=== PATIENT | female | born 1990 | race Caucasian/White ===

== ENCOUNTER 2023-12-01 20:48 | Outpatient (REF) | payer OTHER, SELFPAY ==
[2023-12-04 14:09] LABS: Age Gdln ACOG Testing Note (.); HPV Aptima Negative (Negative); IGP, Aptima HPV, rfx 16/18,45 Note (.)
== END 2023-12-01 20:49 | disposition home or self-care (01) ==
LOC: LAB 20:48
PROVIDERS: PCP Family Medicine; Visit Provider Physician Assistant
DX: Z01.419 Encounter for gynecological examination (general) (routine) without abnormal findings (principal)
CPT/HCPCS: 87624; G0145

== ENCOUNTER 2025-02-02 10:07 | Outpatient (OUT) | payer OTHER, SELFPAY ==
--- OUTSIDE RECORDS SUMMARY | 2025-02-02 10:18 | XMS_ITS | CCD ---
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 Name Role Phone PHYSICIAN, DEFAULT Admitting Unavailable PHYSICIAN, DEFAULT Attending Unavailable Sherry Morton Unavailable SELENE, DR SHERRY Rodriguez Primary Care Unavailable JOSEPH ., DR HUNTER Attending Unavailable JOSEPH ., DR HUNTER Admitting Unavailable SELENE, DR SHERRY Rodriguez Consulting Unavailable SELENE, DR SHERRY Rodriguez Primary Care Unavailable SELENE, DR SHERRY Rodriguez Admitting Unavailable SELENE, DR SHERRY Rodriguez Attending Unavailable SELENE, DR SHERRY Rodriguez Primary Care Unavailable SELENE, DR SHERRY Rodriguez Admitting Unavailable SELENE, DR SHERRY Rodriguez Attending Unavailable SELENE, DR SHERRY Rodriguez Consulting Unavailable Maureen Uriostegui Unavailable MJ HUERTA Attending Unavailable SHERRY MORTON Primary Care Physician Addison Haywood Attending Unavailable Tomi Ruelas Attending Unavailable VIVIEN LEPE Referring Unavailable Allergies Allergy Classification Reported Allergen(s) Allergy Type Date of Onset Reaction(s) Facility (3 sources) Sertraline; Translations: [Zoloft] Drug Allergy 01-26-20 15 [facility] (9 sources) Sertraline; Translations: [sertraline] Drug Allergy 07-08-20 24 Comment:[facility] (5 sources) Sulfamethoxazole / Trimethoprim Drug Allergy 03-11-20 16 Unknown The [facility] Other (8 sources) valACYclovir Drug Allergy 07-08-20 24 shortness of breath [facility] (5 sources) CT CONTRAST Propensity to adverse reactions 02-07-20 16 Unknown The [facility] Other Medications Current Medications Medication Drug Class(es) Dates Sig (Normalized) Sig (Original) Albuterol (1 source) beta2-Adrenergic Agonist Start: 01-27-2024 take 1 puff(s) by inhalation every four to six hours Albuterol Sulfate Active 2 PUFF INHALATION EVERY 4-6 HOURS 6.7 January 27, 2024 12:00am Albuterol Sulfate 90 mcg/actuation HFA aerosol inhaler (2 sources) Start: 01-27-2024 take 1 puff(s) by inhalation every four to six hours as needed for wheezing Albuterol Sulfate 90 mcg/actuation HFA aerosol inhaler Active 2 PUFF INHALATION EVERY 4-6 HOURS as needed for shortness of breath or wheezing 6.7 January 26, 2024 11:00pm ALPRAZolam 0.5 mg oral tablet (10 sources) Benzodiazepine Start: 11-22-2024 take 1 tablet by mouth twice daily as needed Alprazolam 0.5 mg tablet Active 1 TAB PO Twice daily November 22, 2024 12:00am FreeTextSi tablet Orally Twice a day prn; Note: Source Status: Taking; Refills: 0; Provider: Selene Rodriguez Start: 07-08-2024 End: 07-08-2024 take 1 tablet by mouth three times daily as needed Alprazolam (Xanax) 0.25 mg tablet Discontinued 0.25 MG PO Three times daily as needed July 07, 2024 11:00pm July 08, 2024 10:21am Start: 09-24-2023 take 1 tablet by dell th twice daily as needed ALPRAZolam 0.5 MG 1 tablet Orally Twice a day prn for 30 days Sep, Active amoxicillin 875 mg / clavulanate 125 mg oral tablet (1 source) Penicillin-class Antibacterial Start: 01-16-2025 take 1 tablet by mouth twice daily Amoxicillin-Pot Clavulanate 875-125 mg tablet Active 1 TAB PO Twice daily January 16, 2025 12:00am baclofen 10 mg oral tablet (9 sources) gamma-Aminobutyric Acid-ergic Agonist Start: 07-08-2024 End: 01-16-2025 take 1 tablet by mouth three times daily as needed for muscle spasms Baclofen 10 mg tablet Active 10 MG PO Three times daily as needed for muscle spasm January 16, 2025 3:31pm busPIRone hydrochloride 7.5 mg oral tablet (20 sources) Start: 10-03-2024 take 1 tablet by mouth twice daily Buspirone 7.5 mg tablet Active 0 .ROUTE .COMPLEX 180 October 03, 2024 4:36pm TAKE 1 TABLET BY MOUTH TWICE A DAY Start: 07-08-2024 End: 10-03-2024 take 1 tablet by mouth twice daily Buspirone 7.5 mg tablet Discontinued 7.5 MG PO Twice daily 180 90 July 08, 2024 10:20am October 03, 2024 4:36pm Start: 06-06-2024 End: 07-08-2024 take 1 tablet by mouth twice daily Buspirone 5 mg tablet Discontinued 5 MG PO Twice daily 180 June 06, 2024 11:44am July 08, 2024 10:21am Start: 05-13-2024 End: 06-06-2024 take 1 tablet by mouth twice daily Buspirone Discontinued 0 .ROUTE .COMPLEX 60 May 13, 2024 11:04am June 06, 2024 12:44pm TAKE 1 TABLET BY MOUTH TWICE A DAY FOR 30 DAYS Start: 03-22-2024 End: 06-06-2024 take 1 tablet by mouth twice daily Buspirone 5 mg tablet Discontinued 0 .ROUTE .COMPLEX 60 May 13, 2024 10:04am June 06, 2024 11:44am TAKE 1 TABLET BY MOUTH TWICE A DAY FOR 30 DAYS Start: 03-22-2024 End: 05-13-2024 take 1 tablet by mouth twice daily Buspirone Discontinued 0 .ROUTE .COMPLEX 60 March 22, 2024 10:50am May 13, 2024 11:04am TAKE 1 TABLET BY MOUTH TWICE A DAY FOR 30 DAYS Start: 03-21-2024 End: 03-22-2024 take 1 tablet by mouth twice daily Buspirone 5 mg tablet Discontinued 5 MG PO Twice daily March 20, 2024 11:00pm March 22, 2024 9:51am take 1 tablet by dell th every twelve hours busPIRone HCl 5 MG 1 tablet Orally Twice a day for 90 days Active ciprofloxacin 500 mg oral tablet (2 sources) Quinolone Antimicrobial take 1 tablet by mouth every twelve hours Ciprofloxacin HCl 500 MG 1 tablet Orally every 12 hrs for 7 days Active dicyclomine hydrochloride 10 mg oral capsule (4 sources) Anticholinergic Start: take 1 capsule by mouth twice daily Dicyclomine 10 mg capsule Active 10 MG PO Twice daily November 22, 2024 12:00am [facility] eight hours Dicyclomine HCl 10 MG 1 capsule Orally Three times a day for 10 days Active escitalopram 10 mg oral tablet (7 sources) Serotonin Reuptake Inhibitor Start: 10-03-2024 End: 11-22-2024 take 1 tablet by mouth once daily Escitalopram Oxalate 10 mg tablet Active 0 .ROUTE .COMPLEX November 22, 2024 3:11pm TAKE 1 TABLET BY MOUTH DAILY Start: 07-08-2024 End: 10-03-2024 take 1 tablet by mouth once daily Escitalopram Oxalate (Lexapro) 10 mg tablet Discontinued 10 MG PO Daily July 07, 2024 11:00pm October 03, 2024 4:36pm fluconazole 150 mg oral tablet (3 sources) Azole Antifungal Start: 11-05-2023 take 1 tablet by mouth every twenty-four hours Fluconazole 150 MG 1 tablet Orally daily for 1 days take at onset of symptoms and may repeat in 72 hours if not improved. Oct, Active fluticasone propionate 0.05 mg/actuat metered dose nasal spray (13 sources) Corticosteroid Start: 11-22-2024 take 1 spray(s) nasal route once daily Fluticasone Propionate (Flonase Allergy Relief) 50 mcg/actuation spray,suspension Active 1 SPRAY INTRANASAL Daily November 22, 2024 12:00am FreeTextSi spray in each nostril Nasally Once a day; Note: Source Status: Taking; Refills: 0; Qty: 1 bottle; Provider: Marquis Cotter Start: 12-16-2022 take 1 spray(s) nasa l route once daily Flonase Allergy Relief 50 MCG/ACT 1 spray in each nostril Nasally Once a day for 14 day(s) Nov, Active Start: 12-16-2022 take 1 spray(s) nasa l route once daily Flonase Allergy Relief 50 MCG/ACT 1 spray in each nostril Nasally Once a day for 14 day(s) Nov, Active ibuprofen 800 mg oral tablet (11 sources) Nonsteroidal Anti-inflammatory Drug Start: 07-08-2024 End: 07-08-2024 take 1 tablet by mouth every eight hours Ibuprofen 800 mg tablet Active 800 MG PO Every 8 hours July 08, 2024 10:22am Start: 04-07-2023 take 1 tablet by dell th every eight hours at mealtime as needed Ibuprofen 800 MG 1 tablet with food or milk as needed Orally every 8 hrs for 30 days March, Active Multivitamin preparation (11 sources) Multivitamin Act antonia Multivitamin tablet (2 sources) Start: 11-22-19 take 1 tablet by mouth once daily Multivitamin tablet Active 1 TAB PO Daily November 22, 2024 12:00am omeprazole 20 mg delayed release oral capsule (1 source) Proton Pump Inhibitor Start: 01-10-20 take 1 capsule by mouth once daily Prilosec 20 mg Cap-EC 20 mg = 1 cap(s), Oral, Daily, Refills(s) 0 Start Date: 01/10/16 Status: Ordered ondansetron 4 mg disintegrating oral tablet (13 sources) Serotonin-3 Receptor Antagonist Start: 11-22-19 take 1 tablet by mouth every eight hours Ondansetron 4 mg tablet,disintegratin g Active 1 TAB PO Every 8 hours November 22, 2024 12:00am FreeTextSi tablet on the tongue and allow to dissolve Orally every 8 hours; Note: Source Status: Taking; Refills: 0; Qty: 15 Tablet; Provider: Marquis Cotter Start: 12-16-2022 take 1 tablet by dell th every eight hours Ondansetron 4 MG 1 tablet on the tongue and allow to dissolve Orally every 8 hours for 5 days Nov, Active Completed/Discontinued Medications Medication Drug Class(es) Dates Sig (Normalized) Sig (Original) azithromycin 250 mg oral tablet (4 sources) Macrolide Antimicrobial Start: 01-27-2024 End: 07-08-2024 Azithromycin 250 mg tablet Discontinued 0 PO .COMPLEX January 26, 2024 11:00pm July 08, 2024 10:05am For 250 mg dose pack: take 500 mg today (day 1), then 250 mg for 4 days (days 2-5) PO Start: 01-27-2024 End: 07-08-2024 Azithromycin Discontinued 0 PO .COMPLEX January 27, 2024 12:00am July 08, 2024 11:05am For 250 mg dose pack: take 500 mg today (day 1), then 250 mg for 4 days (days 2-5) PO Start: 11-05-2023 Azithromycin 2 50 MG 2 tablet on the first day, then 1 tablet daily for 4 days Orally Once a day for 5 day(s) Oct, Active chlorhexidine gluconate 1.2 mg/ml mouthwash (5 sources) Start: 11-22-2024 End: 01-16-2025 Chlorhexidine Gluconate 0.12 % mouthwash Discontinued PO November 22, 2024 12:00am January 16, 2025 3:31pm FreeTextSi mL swish for 30 seconds, then spit. Do not swallow. Mouth/Throat Twice a day; Note: Source Status: Taking; Refills: 0; Provider: Gila Garcia Start: 11-05-2023 Chlorhexidine Gluconate 0.12 % 15 mL swish for 30 seconds, then spit. Do not swallow. Mouth/Throat Twice a day for 30 days Oct, Active methylPREDNISolone 4 mg oral tablet (3 sources) Corticosteroid Start: 01-27-2024 End: 07-08-2024 Methylprednisolone 4 mg tablets,dose pack Discontinued 0 PO per package directions January 26, 2024 11:00pm July 08, 2024 10:06am PO PER PKG DIR for 6 days Start: 01-27-2024 End: 07-08-2024 Methylprednisolone Discontin ued 0 PO per package directions January 27, 2024 12:00am July 08, 2024 11:06am PO PER PKG DIR for 6 days Triamcinolone (11 sources) Corticosteroid Start: 06-24-2019 KENALOG - 10 m g Jun, 60 mg Problems Active Problems Problem Classification Problem Date Documented Date Episodic/Chronic Acute and chronic tonsillitis (4 sources) Amygdalolith; 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 Administrative/social admission (2 sources) Encounter for pre-employment examination; Translations: [Encounter for pre-employment examination] Onset: 07-07-2024 Episodic Anxiety disorders (10 sources) Anxiety; Translations: [Anxiety disorder, unspecified] Chronic Attention-deficit, conduct, and disruptive behavior disorders (5 sources) Adult attention deficit hyperactivity disorder ; Translations: [Attention-deficit hyperactivity disorder, unspecified type] Chronic Chronic obstructive pulmonary disease and bronchiectasis (3 sources) Bronchitis; Translations: [Bronchitis, not specified as acute or chronic] 01-27-2024 Episodic Diverticulosis and diverticulitis (14 sources) Diverticular disease of colon; Translations: [Diverticulosis of intestine, part unspecified, without perforation or abscess without bleeding] Chronic Nausea and vomiting (11 sources) Nausea; Translations: [Nausea] Episodic Other lower respiratory disease (1 source) Cough; Translations: [Cough, unspecified] Onset: 01-27-2024 Episodic Other nutritional; endocrine; and metabolic disorders (1 source) Obese class I; Translations: [Body mass index (BMI) 30.0-30.9, adult] Onset: 01-27-2024 Chronic Other screening for suspected conditions (not mental disorders or infectious disease) (1 source) No current problems or disability 05-01-2014 Episodic Other upper respiratory infections (2 sources) Acute maxillary sinusitis, unspecified; Translations: [Acute upper respiratory infection] Onset: 01-27-2024 Episodic Spondylosis; intervertebral disc disorders; other back problems (4 sources) Dorsalgia, unspecified; Translations: [Muscle spasm of thoracic back] Onset: 05-07-2022 07-21-2024 Episodic Unclassified (1 source) Entire gallbladder (body structure) 02-17-2012 Comment on above: non-working Past or Other Problems Problem Classification Problem Date Documented Da te Episodic/Chronic Unclassified (3 sources) Onset: 09-21-2011 Resolved: 01-10-2016 05-24-2015 Results Test Name Value Interpretation Reference Range Facility Measles (Rubeola) Imon 07-08 Measles (Rubeola) Im 4.53 Normal >1.09 [facility] Comment on above: Result Comment: Interpretation: IMMUNE Reference Range: <0.91 Not Immune 0.91-1.09 Equivocal >1.09 Immune Performed By: #### V JOAN ARZATE MUI, WEST #### [facility] [place] [address] Heater Tender: Barry Kim MD Mumps,Immun,Abon 07-08-2024 Mumps,Immun,Ab 0.58 Low >1.09 [facility] in Hospital Comment on above: Result Comment: Interpretation: Not Immune Reference Range: <0.91 Not Immune 0.91-1.09 Equivocal >1.09 Immune Performed By: #### JOAN ROBERTS MUI, WEST #### [facility] [address] [place] [id number] Heater Tender: Barry Kim MD Rubella Ab, IgGon 07-08-2024 Rubella Ab, IgG >500.0 Normal [facility] Comment on above: Result Comment: <10 NON REACTIVE Negative for Anti-Rubella IgG >=10 REACTIVE Positive for Anti Rubella IgG The presence of IgG antibody to Rubella virus is an indication of previous exposure either by prior infection or vaccination. Performed By: #### JOAN ROBERTS MUI, WEST #### [facility] [address] [place] [id number] Heater Tender: Barry Kim MD VZ Immunityon 07-08-2024 VZ Immunity 3.21 Normal >1.09 [facility] Comment on above: Result Comment: Interpretation: IMMUNE Reference Range: <0.91 Not Immune 0.91-1.09 Equivocal >1.09 Immune Performed By: #### JOAN ROBERTS MUI, WEST #### [facility] [address] [place] [id number] Heater Tender: Barry Kim MD Family Medicine Office/Clini c Noteon 01-28-2024 Family Medicine Office/Clinic Note Chief Complaint flu test HPI Staff 33 year old female presents with pos flu. cough, fever symptoms for 3 days was given a steroid and antibiotic for cough by pcp today History of Present Illness I have reviewed and verified the staff HPI to be accurate for this encounter. Portions of this record have been created with voice recognition software. Occasional wrong-word or ?[id number]? substitutions may have occurred due to the inherent limitations of voice recognition software. 33-year-old female presents to convenient care today with chief complaint of possible influenza. Patient states cough and fever. Symptom onset x 3 days ago. Patient states she was given a steroid and antibiotic for cough by her primary care provider today. States she had simply call their office to see if she could get in to be seen and she felt that maybe she had a viral infection given she is only had symptoms for 2 to 3 days however states that her primary care provider did send steroids and antibiotics. Patient does note a history of asthma and has used her inhaler in the past couple of days denies smoking history. 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 She states she does not want to take anything to them. She states she took a home COVID-19 test this morning that was negative but had concerned that maybe she had influenza given that she did run a fever or chills in which the highest the fever was at home was around 102 states that was an oral temp. States she had body aches headache sore throat with her symptoms denies any strep exposure that she is aware of. Denies any sick contacts at home or at work that she knows of. She states the cough is dry and nonproductive. She denies any acute chest pain shortness of breath or difficulty breathing with cough. She denies any abdominal pain nausea vomiting or diarrhea. Patient also has concern for possible mono as she notes that she has been exposed to somebody with mono. She denies any ear pain she states a little bit of runny stuffy nose but mainly with cough that is keeping her up at night and driving her crazy. She has no other concerns at this time. Patient has drug allergy to Zoloft. Review of Systems PHQ Score Initial Depression Screen Score: 0 SCORE ROS negative unless otherwise stated in HPI. Physical Exam Vitals & Measurements T: 36.2 ?C(Oral) HR: 112(Peripheral) BP: 122/74 SpO2: 97% HT: 65 in HT: 164 cm WT: 81 kg WT: 178.2 lb BMI: 30.12 General: Very pleasant young obese female, no acute distress Eyes: Bilateral conjunctiva are within normal limits no injection Ears: Bilateral TMs are within normal limits no erythema or bulging. Bilateral external auditory canals are within normal limits no erythema or edema Nose: mild nasal mucosa inflammation and edema no active drainage deformity or lesion Mouth: Moist mucous membranes. Uvula is midline. No acute tonsillar erythema edema or exudate. No signs of peritonsillar abscess. No trismus or drooling. Neck: no adenopathy Lungs: Lung sounds are clear bilaterally. No wheezing rhonchi or crackles on exam. Cardio: S1, S2, regular rhythm. No murmurs gallops or rubs. Abdomen: not assessed Musculoskeletal: not assessed Extremity: Patient walked back into convenient care on her own without gait abnormality. Neurologic: not assessed Skin: not assessed Mental Status: Alert and oriented x3. Normal mood and affect Assessment/Plan Patient is provided with a work note for tomorrow she must be fever free for 24 hours with symptomatic improvement prior to returning to work in which patient is understanding. Patient did have influenza test completed in office today which is negative. Patient did a home COVID-19 test this morning does not wish to repeat 1 in the office. She does not have any concerns for strep pharyngitis at this time and declines strep test. I discussed that I can order a monoscreen however this is a blood test that she would have to go over to the hospital have this done as we do not have the correct tubing for this test. Patient is understanding and in agreement I did order her monoscreen. Patient is to follow closely with primary care provider in 3 to 5 days discussed that she most likely has a viral illness typically the worst of the symptoms are in the first 3 to 5 days however she may have cough or cold-like symptoms anywhere from 7 to 10 days in duration. If she does develop wheezing since she does have history of asthma she may begin taking the steroid prescribed to her by primary care doctor. Otherwise she may contact primary care for follow-up visit or return if needed. She should seek ER for reevaluation if she develops any chest pain shortness of breath or difficulty breathing in which patient agrees and understands plan. 1. Viral URI with cough (J06.9: Acute upper respiratory infection, unspecified) Discussed exam and hx are consistent with viral il (more content not included)... Normal [facility] Comment on above: Result Comment: Elec tronically Signed By: Suraj RHODES, Tomi Cash\.br\Date and Time Signed: 01/28/24 16:20 EDT Patient Educationon 01-28-20 Patient Education Infectious Disease Upper Respiratory Infection, Adult An upper respiratory infection (URI) is a common viral infection of the nose, throat, and upper air passages that lead to the lungs. The most common type of URI is the common cold. URIs usually get better on their own, without medical treatment. What are the causes? A URI is caused by a virus. You may catch a virus by: ? Breathing in droplets from an infected person's cough or sneeze. ? Touching something that has been exposed to the virus (is contaminated) and then touching your mouth, nose, or eyes. What increases the risk? You are more likely to get a URI if: ? You are very young or very old. ? You have close contact with others, such as at work, school, or a health care facility. ? You smoke. ? You have long-term (chronic) heart or lung disease. ? You have a weakened disease-fighting system (immune system). ? You have nasal allergies or asthma. ? You are experiencing a lot of stress. ? You have poor nutrition. What are the signs or symptoms? A URI usually involves some of the following symptoms: ? Runny or stuffy (congested) nose. ? Cough. ? Sneezing. ? Sore throat. ? Headache. ? Fatigue. ? Fever. ? Loss of appetite. ? Pain in your forehead, behind your eyes, and over your cheekbones (sinus pain). ? Muscle aches. ? Redness or irritation of the eyes. ? Pressure in the ears or face. How is this diagnosed? This condition may be diagnosed based on your medical history and symptoms, and a physical exam. Your health care provider may use a swab to take a mucus sample from your nose (nasal swab). This sample can be tested to determine what virus is causing the illness. How is this treated? URIs usually get better on their own within 7?10 days. Medicines cannot cure URIs, but your health care provider may recommend certain medicines to help relieve symptoms, such as: ? Ivdx-xaj-jgvjmsa cold medicines. ? Cough suppressants. Coughing is a type of defense against infection that helps to clear the respiratory system, so take these medicines only as recommended by your health care provider. ? Fever-reducing medicines. Follow these instructions at home: Activity ? Rest as needed. ? If you have a fever, stay home from work or school until your fever is gone or until your health care provider says your URI cannot spread to other people (is no longer contagious). Your health care provider may have you wear a face mask to prevent your infection from spreading. Relieving symptoms ? Gargle with a mixture of salt and water 3?4 times a day or as needed. To make salt water, completely dissolve ??1 tsp (3?6 g) of salt in 1 cup (237 mL) of warm water. ? Use a cool-mist humidifier to add moisture to the air. This can help you breathe more easily. Eating and drinking ? Drink enough fluid to keep your urine pale yellow. ? Eat soups and other clear broths. General instructions ? Take [id number]-rdirizo and prescription medicines only as told by your health care provider. These include cold medicines, fever reducers, and cough suppressants. ? Do not use any products that contain nicotine or tobacco. These products include cigarettes, chewing tobacco, and vaping devices, such as e-cigarettes. If you need help quitting, ask your health care provider. ? Stay away from secondhand smoke. ? Stay up to date on all immunizations, including the yearly (annual) flu vaccine. ? Keep all follow-up visits. This is important. How to prevent the spread of infection to others URIs can be contagious. To prevent the infection from spreading: ? Wash your hands with soap and water for at least 20 seconds. If soap and water are not available, use hand police district switchboard operator. ? Avoid touching your mouth, face, eyes, or nose. ? Cough or sneeze into a tissue or your sleeve or elbow instead of into your hand or into the air. Contact a health care provider if: ? You are getting worse instead of better. ? You have a fever or chills. ? Your mucus is brown or red. ? You have yellow or brown discharge coming from your nose. ? You have pain in your face, especially when you bend forward. ? You have swollen neck glands. ? You have pain while swallowing. ? You have white areas in the back of your throat. Get help right away if: ? You have shortness of breath that gets worse. ? You have severe or persistent: ? Headache. ? Ear pain. ? Sinus pain. ? Chest pain. ? You have chronic lung disease along with any of the following: ? Making high-pitched whistling sounds when you breathe, most often when you breathe out (wheezing). ? Prolonged cough (more than 14 days). ? Coughing up blood. ? A change in your usual mucus. ? You have a stiff neck. ? You have changes in your: ? Vision. ? Hearing. ? Thinking. ? Mood. These symptoms may be an emergency. Get help (more content not included)... Normal [facility] Provider Letteron 01-27-2024 Provider Letter January 27, 2024 AYLIN AYALA [address] [place] [address] : 1990 To Whom It May Concern, Please excuse above patient from work. Date of Illness: From: 01/27/2024 To: 01/28/2024 May Return to Work On: 01/29/2024 Restrictions: None Comments: Please excuse above for acute illness. Sincerely, [facility] [address] [place] [id number] Normal [facility] Quantiferon-TB Plus (Client Incubated)on 09-03-2023 Gamma interferon background IA Qn (Bld) 0.05 International_Unit/ mL Invalid Interpretation Code [facility] Comment on above: Performed By: #### 1 [id number] #### [facility] [address] [place] [address] M. tuberculosis stim IFN-g by CD4+ CD8+ T-cells Qn (Bld) 0.11 International_Unit/ mL Invalid Interpretation Code [facility] Comment on above: Performed By: #### 1 [id number] #### [facility] [address] [place] [address] M. tuberculosis stim IFN-g by CD4+ T-cells Qn (Bld) 0.09 International_Unit/ mL Invalid Interpretation Code [facility] Comment on above: Performed By: #### 1 [id number] #### [facility] [address] [place] [address] M. tuberculosis stim IFN-g Ql (Bld) [Interp] Negative Invalid Interpretation Code Negative [facility] Comment on above: Result Comment: No r esponse to M tuberculosis antigens detected. Infection with M tuberculosis is unlikely, but high risk individuals should be considered for additional testing (ATS/IDSA/CDC Clinical Practice Guidelines, 2017). The reference range is an Antigen minus Nil result of <0.35 IU/mL. The specimen received for QuantiFERON testing was incubated by the ordering institution. Specific procedures outlined in our Directory of Services and in the package insert for the QuantiFERON Gold (In Tube) test must be followed to enable for proper stimulation of cells for the production of interferon gamma. Chemiluminescence immunoassay methodology Performed at: [facility] [id number] PhD Uday Person Performed By: #### 1 [id number] #### [facility] [address] [place] [address] Mitogen stimulated gamma interferon Qn (Bld) >10.00 Invalid Interpretation Code [facility] Comment on above: Performed By: #### 1 [id number], [id number] #### [facility] [address] [place] [address] Service comment (Unsp spec) [Interp] Comment Invalid Interpretation Code [facility] Comment on above: Result Comment: Matt tiFERON-TB Gold Plus is a qualitative indirect test for M tuberculosis infection (including disease) and is intended for use in conjunction with risk assessment, radiography, and other medical and diagnostic evaluations. The QuantiFERON-TB Gold Plus result is determined by subtracting the Nil value from either TB antigen (Ag) value. The Mitogen tube serves as a control for the test. Performed By: #### 1 [id number] #### [facility] [address] [place] [address] Hep Bs Abon 09-02-2023 HBV surface Ab Ql (S) Reactive Invalid Interpretation Code [facility] Comment on above: Result Comment: Non Reactive: Inconsistent with immunity, less than 10 mIU/mL Reactive: Consistent with immunity, greater than 9.9 mIU/mL Performed at: [facility] [id number] [place], [place] [id number] PhD Uday Person Performed By: #### 1 [id number], [id number], [id number] #### [facility] [address] [place] [address] Measles/Mumps/Rubella Immuni tyon 09-02-2023 MeV IgG IA Qn (S) {index_val} Invalid Interpretation Code Immune >16.4 [facility] Comment on above: Result Comment: Nega tive <13.5 Equivocal 13.5 - 16.4 Positive >16.4 Presence of antibodies to Rubeola is presumptive evidence of immunity except when acute infection is suspected. Performed By: #### 1 [id number] #### [facility] [address] [place] [address] MuV IgG IA Qn (S) <9.0 Low Immune >10.9 [facility] Comment on above: Result Comment: Nega tive <9.0 Equivocal 9.0 - 10.9 Positive >10.9 A positive result generally indicates past exposure to Mumps virus or previous vaccination. Performed at: [facility] [address] [place] [id number] PhD Uday Person Performed By: #### 1 [id number], [id number] #### [facility] [address] [place] [address] Rubella virus IgG Qn (S) 5.75 [IU]/mL Invalid Interpretation Code Immune >0.99 [facility] Comment on above: Result Comment: Non- immune <0.90 Equivocal 0.90 - 0.99 Immune >0.99 Performed By: #### 1 [id number], [id number], [id number] #### [facility] [address] [place] [address] Varic IgGon 09-02-2023 VZV IgG IA Qn (S) >4000 Invalid Interpretation Code Immune >165 [facility] Comment on above: Result Comment: Nega tive <135 Equivocal 135 - 165 Positive >165 A positive result generally indicates exposure to the pathogen or administration of specific immunoglobulins, but it is not indication of active infection or stage of disease. Performed at: [facility] [address] [place], [place] [id number] PhD Uday Person Performed By: #### 1 [id number] #### [facility] [address] [place] [address] HEPATITIS B SURFACE ANTIBODY , QUANTon 03-13-2023 Hepatitis B Surf AB Quant 83.5 mIU/mL Normal Immunity>9.9 [facility] Comment on above: Result Comment: Stat us of Immunity Anti-HBs Level Inconsistent with Immunity 0.0 - 9.9 Consistent with Immunity >9.9 Performed By: #### H EPBSRF #### [facility] [address] [place] [address] Dr. Radha Dixon MMR IMMUNITYon 03-13-2023 Mumps Abs, IgG <9.0 Critically low Immune >10.9 [facility] Comment on above: Result Comment: Nega tive <9.0 Equivocal 9.0 - 10.9 Positive >10.9 A positive result generally indicates past exposure to Mumps virus or previous vaccination. Performed By: #### M MRIMMU #### [facility] [address] [place] [address] Dr. Radha Dixon Rubella Antibodies, IgG 3.62 index Normal Immune >0.99 [facility] Comment on above: Result Comment: Non- immune <0.90 Equivocal 0.90 - 0.99 Immune >0.99 Performed By: #### M MRIMMU #### [facility] [address] [place] [address] Dr. Radha Dixon Rubeola Ab, IgG >300.0 Normal Immune >16.4 [facility] Comment on above: Result Comment: Nega tive <13.5 Equivocal 13.5 - 16.4 Positive >16.4 Presence of antibodies to Rubeola is presumptive evidence of immunity except when acute infection is suspected. Performed By: #### M MRIMMU #### [facility] [address] [place] [address] Dr. Radha Dixon SANDRO by IFAon 05-07-2022 Antinuclear Antibodies, IFA Negative Normal [facility] Comment on above: Result Comment: Nega tive <1:80 Borderline 1:80 Positive >1:80 ICAP nomenclature: AC-0 For more information about Hep-2 cell patterns use ANApatterns.org, the official website for the International Consensus on Antinuclear Antibody (SANDRO) Patterns (ICAP). Performed By: #### A NAIFA #### [facility] [address] [place] [address] Dr. Radha Dixon ANTISTREPTOLYSIN O AB (ASO)o n 05-06-2022 Antistreptolysin O Ab 58.1 IU/mL Normal 0.0-200.0 [facility] Comment on above: Performed By: #### A SOAB #### [facility] [address] [place] [address] Dr. Radha Dixon RHEUMATOID FACTORon 05-06-20 RA Latex Turbid. <10.0 Normal <14.0 [facility] Comment on above: Performed By: #### R F #### [facility] [address] [place] [address] Dr. Radha Dixon CRPon 05-05-2022 CRP [Mass/Vol] mg/L Normal <=1.0 [facility] Comment on above: Performed By: #### L IPID, CRP, URIC, BMP #### [facility] [address] [place] [address] Dr. Radha Dixon LIPID PROFILEon 05-05-2022 CHOL-HDL RATIO NORM SEE BELOW Normal [facility] Comment on above: Result Comment: 3.3 - 4.4 LOW RISK 4.4 - 7.1 AVERAGE RISK 7.1 - 11.0 MODERATE RISK >11.0 HIGH RISK Performed By: #### L IPID, CRP, URIC, BMP #### [facility] [address] [address] [address] Radha Dixon Cholesterol [Mass/Vol] 190 mg/dL Normal <=200 [facility] Comment on above: Performed By: #### L IPID, CRP, URIC, BMP #### [facility] [address] [address] [address] Radha Dixon Cholesterol in HDL [Mass/Vol] 59 mg/dL Normal 40-60 [facility] Comment on above: Performed By: #### L IPID, CRP, URIC, BMP #### [facility] [address] [address] [address] Radha Dixon Cholesterol in LDL [Mass/Vol] 111.0 mg/dL Normal [facility] Comment on above: Performed By: #### L IPID, CRP, URIC, BMP #### [facility] [address] [address] [address] Radha Dixon Cholesterol.total/Cho lesterol in HDL [Mass ratio] 3.2 {ratio} Normal [facility] Comment on above: Performed By: #### L IPID, CRP, URIC, BMP #### [facility] [address] [address] [address] Radha Dixon HDL NORMAL > or = 60 mg/dl - LOW CARDIOVASCULAR RISK <40 mg/dl - HIGH CARDIOVASCULAR RISK Normal [facility] Comment on above: Performed By: #### L IPID, CRP, URIC, BMP #### [facility] [address] [address] [address] Radha Dixon LDL CALC NORMAL SEE BELOW Normal [facility] Comment on above: Result Comment: <100 mg/dl OPTIMAL 100 - 129 mg/dl NEAR OR ABOVE OPTIMAL 130 - 159 mg/dl BORDERLINE HIGH 160 - 189 mg/dl HIGH >190 mg/dl VERY HIGH Performed By: #### L IPID, CRP, URIC, BMP #### [facility] [address] [address] [address] Radha Dixon Triglyceride [Mass/Vol] 100 mg/dL Normal <=150 [facility] Comment on above: Performed By: #### L IPID, CRP, URIC, BMP #### [facility] [address] [place] [address] Dr. Radha Dixon VLDL CALC 20.0 mg/dL Normal [facility] Comment on above: Performed By: #### L IPID, CRP, URIC, BMP #### [facility] [address] [place] [address] Dr. Radha Dixon PROF CHEM 8 (BAS METB)on Anion gap [Moles/Vol] 13.2 mmol/L Normal [facility] Comment on above: Performed By: #### L IPID, CRP, URIC, BMP #### [facility] [address] [place] [address] Dr. Radha Dixon Calcium [Mass/Vol] 8.2 mg/dL Critically low 8.5-10.1 [facility] Comment on above: Performed By: #### L IPID, CRP, URIC, BMP #### [facility] [address] [place] [address] Dr. Radha Dixon Chloride [Moles/Vol] 106 mmol/L Normal 98-107 [facility] Comment on above: Performed By: #### L IPID, CRP, URIC, BMP #### [facility] [address] [place] [address] Dr. Radha Dixon CO2 [Moles/Vol] 23.9 mmol/L Normal 21.0-32.0 [facility] Comment on above: Performed By: #### L IPID, CRP, URIC, BMP #### [facility] [address] [place] [address] Dr. Radha Dixon Creatinine [Mass/Vol] 0.81 mg/dL Normal 0.55-1.02 [facility] Comment on above: Performed By: #### L IPID, CRP, URIC, BMP #### [facility] [address] [place] [address] Dr. Radha Dixon EGFR-AF MONTENEGRIN >60 Normal >=60 [facility] Comment on above: Performed By: #### L IPID, CRP, URIC, BMP #### [facility] [address] [place] [address] Dr. Radha Dixon EGFR-NON AF MONTENEGRIN >60 Normal >=60 [facility] Comment on above: Performed By: #### L IPID, CRP, URIC, BMP #### [facility] [address] [address] [address] Radha Dixon Glucose [Mass/Vol] 97 mg/dL Normal 74-106 [facility] Comment on above: Performed By: #### L IPID, CRP, URIC, BMP #### [facility] [address] [address] [address] Radha Dixon Potassium [Moles/Vol] 4.1 mmol/L Normal 3.5-5.1 [facility] Comment on above: Performed By: #### L IPID, CRP, URIC, BMP #### [facility] [address] [place] [address] Dr. Radha Dixon Sodium [Moles/Vol] 139 mmol/L Normal 136-145 [facility] Comment on above: Performed By: #### L IPID, CRP, URIC, BMP #### [facility] [address] [place] [address] Dr. Radha Dixon Urea nitrogen [Mass/Vol] 10.0 mg/dL Normal 7.0-18.0 [facility] Comment on above: Performed By: #### L IPID, CRP, URIC, BMP #### [facility] [address] [place] [address] Dr. Radha Dixon Urea nitrogen/Creatinine [Mass ratio] 12.3 mg/mg Normal [facility] Comment on above: Performed By: #### L IPID, CRP, URIC, BMP #### [facility] [address] [place] [address] Dr. Radha Dixon SED RATE WESTERGRENon 2021 SED RATE 5 mm/hr Normal <=20 [facility] Comment on above: Performed By: #### S EDR #### [facility] [address] [place] [address] Dr. Radha Dixon URIC ACID SERUMon 05-05-2022 Urate [Mass/Vol] 4.0 mg/dL Normal 2.6-6.0 [facility] Comment on above: Performed By: #### L IPID, CRP, URIC, BMP #### [facility] [address] [address] [address] Radha Dixon Vital Signs Date Time Vital Sign Value Performing Clinician Facility 01-16-2025 15:15-0500 Body height 162.56 cm [facility] 01-16-2025 15:15-0500 Body mass index (BMI) [Ratio] 31.9 kg/m2 [facility] 01-16-2025 15:15-0500 Body temperature 97.9 [degF] [facility] 01-16-2025 15:15-0500 Body weight 84.36 kg [facility] 01-16-2025 15:15-0500 Diastolic blood pressure 73 mm[Hg] [facility] 01-16-2025 15:15-0500 Heart rate 97 /min [facility] 01-16-2025 15:15-0500 Systolic blood pressure 103 mm[Hg] [facility] 11-22-2024 14:52-0500 Body height 162.56 cm [facility] 11-22-2024 14:52-0500 Body mass index (BMI) [Ratio] 31.9 kg/m2 [facility] 11-22-2024 14:52-0500 Body weight 84.36 kg [facility] 11-22-2024 14:52-0500 Diastolic blood pressure 77 mm[Hg] [facility] 11-22-2024 14:52-0500 Heart rate 73 /min [facility] 11-22-2024 14:52-0500 Systolic blood pressure 114 mm[Hg] [facility] 07-08-2024 10:56-0400 Body height 162.56 cm [facility] 07-08-2024 10:56-0400 Body mass index (BMI) [Ratio] 30.5 kg/m2 [facility] 07-08-2024 10:56-0400 Body weight 80.73 kg [facility] 07-08-2024 10:56-0400 Diastolic blood pressure 74 mm[Hg] [facility] 07-08-2024 10:56-0400 Heart rate 90 /min [facility] 07-08-2024 10:56-0400 Systolic blood pressure 113 mm[Hg] [facility] 01-27-2024 18:38-0400 Blood Pressure Location Tomi Ruelas [facility] 01-27-2024 18:38-0400 Body temperature 97.16 [degF] Tomi Ruelas [facility] 01-27-2024 18:38-0400 Diastolic blood pressure 74 mm[Hg] Tomi Ruelas [facility] 01-27-2024 18:38-0400 Heart rate 112 /min Tomi Ruelas [facility] 01-27-2024 18:38-0400 SaO2% (BldA) [Mass fraction] 97 % Tomi Ruelas [facility] 01-27-2024 18:38-0400 Systolic blood pressure 122 mm[Hg] Tomi Ruelas [facility] 12-15-2023 14:00-0500 Body height 162.56 cm Sherry Morton Other [facility] Other 12-15-2023 14:00-0500 Body mass index (BMI) [Ratio] 31.58 kg/m2 Sherry Morton Other [facility] Other 12-15-2023 14:00-0500 Body weight 83.46 kg Sherry Morton Other [facility] Other 12-15-2023 14:00-0500 Diastolic blood pressure 71 mm[Hg] Sherry Morton Other [facility] Other 12-15-2023 14:00-0500 Systolic blood pressure 106 mm[Hg] Sherry Morton Other [facility] Other 11-05-2023 14:00-0500 Body height 162.56 cm Maureen Uriostegui Other [facility] Other 11-05-2023 14:00-0500 Body mass index (BMI) [Ratio] 31.75 kg/m2 Maureen Uriostegui Other [facility] Other 11-05-2023 14:00-0500 Body weight 83.92 kg Maureen Gila Other [facility] Other 11-05-2023 14:00-0500 Diastolic blood pressure 74 mm[Hg] Maureen Uriostegui Other [facility] Other 11-05-2023 14:00-0500 SaO2% (BldA) [Mass fraction] 98 % Maureen Uriostegui Other [facility] Other 11-05-2023 14:00-0500 Systolic blood pressure 114 mm[Hg] Maureen Uriostegui Other [facility] Other 09-24-2023 09:30-0500 Body height 162.56 cm Sherry Morton Other [facility] Other 09-24-2023 09:30-0500 Body mass index (BMI) [Ratio] 32.78 kg/m2 Sherry Morton Other [facility] Other 09-24-2023 09:30-0500 Body weight 86.64 kg Sherry Morton Other [facility] Other 09-24-2023 09:30-0500 Diastolic blood pressure 83 mm[Hg] Sherry Selene Other [facility] Other 09-24-2023 09:30-0500 Systolic blood pressure 116 mm[Hg] Sherry Selene Other [facility] Other Encounters Encounter Date Encounter Type Care Provider Facility Start: 01-16-2025 End: 01-16-2025 ambulatory [facility] Work Phone: Start: 01-16-2025 End: 01-16-2025 Patient encounter procedure [facility] Work Phone: Start: 11-22-2024 Patient encounter status [facility] Start: 11-22-2024 End: 11-22-2024 ambulatory [facility] Work Phone: Start: 11-22-2024 End: 11-22-2024 Encounter for general adult medical examination without abnormal findings [facility] Start: 11-22-2024 End: 11-22-2024 Patient encounter procedure [facility] Work Phone: Start: 07-08-2024 End: 07-08-2024 ambulatory [facility] Work Phone: Start: 07-08-2024 End: 07-08-2024 Patient encounter procedure [facility] Work Phone: Start: 07-07-2024 End: 07-07-2024 ambulatory [facility] Start: 01-27-2024 End: 01-28-2024 ambulatory Tomi Ruelas Facility:[facility] Start: 01-27-2024 End: 01-27-2024 Patient encounter procedure Tomi Ruelas [facility] Start: 12-15-2023 End: 12-15-2023 ambulatory Sherry Morton Other [facility] Other Start: 12-15-2023 Office outpatient vi sit 15 minutes Sherry Morton [facility] Start: 12-15-2023 Telephone encounter Sherry Morton [facility] Start: 12-01-2023 End: 12-01-2023 ambulatory MJ HUERTA Not Available Start: 11-05-2023 End: 11-05-2023 ambulatory Maureen Uriostegui Other [facility] Other Start: 11-05-2023 Office outpatient vi sit 15 minutes Maureen Uriostegui [facility] Start: 10-19-2023 End: 10-19-2023 ambulatory Sherry Morton Other [facility] Other Start: 10-19-2023 Telephone encounter Sherry Morton [facility] Start: 09-24-2023 End: 09-24-2023 ambulatory Sherry Morton Other [facility] Other Start: 09-24-2023 Encounter for genera l adult medical examination without abnormal findings Sherry Morton [facility] Start: 09-24-2023 Office outpatient vi sit 15 minutes Sherry Morton [facility] Start: 09-01-2023 End: 09-02-2023 ambulatory Addison Haywood Facility:[facility] Start: 03-16-2023 Encounter for antibo dy response examination DR SHERRY MORTON [facility] Start: 03-13-2023 End: 03-13-2023 ambulatory Sherry Morton Other [facility] Other Start: 03-13-2023 Telephone encounter Sherry Morton [facility] Start: 03-12-2023 End: 03-13-[address] SHERRY MORTON Facility: Start: 03-12-2023 End: 03-13-2023 Encounter for antibody response examination DR SHERRY MORTON Facility: Start: 02-02-2023 End: 02-02-2023 ambulatory Sherry Morton Other [facility] Other Start: 02-02-2023 Telephone encounter Sherry Selene [facility] Start: 12-23-2022 End: 12-23-2022 ambulatory Sherry Morton Other [facility] Other Start: 12-23-2022 Encounter for antibo dy response examination Sherry Selene [facility] Start: 12-23-2022 Nursing evaluation o f patient and report Sherry Selene [facility] Start: 12-23-2022 Telephone encounter Sherry Selene [facility] Start: 12-10-2022 End: 12-10-2022 ambulatory Sherry Morton Other [facility] Other Start: 12-10-2022 Encounter for antibo dy response examination Sherry Morton [facility] Start: 12-10-2022 Telephone encounter Sherry Morton [facility] Start: 11-25-2022 End: 11-25-2022 ambulatory Sherry Morton Other [facility] Other Start: 11-25-2022 Telephone encounter Sherry Morton [facility] Start: 06-22-[address] SHERRY MORTON Facil ity:[facility] Start: 05-07-2022 Encounter for genera l adult medical examination without abnormal findings DR SHERRY MORTON [facility] Start: 05-05-2022 End: 05-06-[address] SHERRY MORTON Facility:[facility] Start: 05-05-2022 End: 05-06-2022 Encounter for general adult medical examination without abnormal findings DR SHERRY MORTON Facility:[facility] Start: 02-03-2019 End: 02-04-2019 Patient encounter procedure DEFAULT PHYSICIAN Facility:[facility] Procedures Date Procedure Procedure Detail Performing Clinician Start: 11-16-2013 Cholecystectomy Tomi weiner Start: 11-16-2011 Dilation and curetta ge of uterus Tomi Ruelas Plan of Treatment Date Care Activity Detail Author Comprehensive metabo lic 2000 panel - Serum or Plasma [facility] Immunizations Immunization Date Immunization Notes Care Provider Fa cility 03-20-2023 measles, mumps and rubella virus vaccine Tomi Suraj [facility] 12-23-2022 tetanus and diphtheria toxoids, adsorbed, preservative free, for adult use (2 Lf of tetanus toxoid and 2 Lf of diphtheria toxoid) [facility] 12-23-2022 tetanus and diphtheria toxoids, adsorbed, preservative free, for adult use (5 Lf of tetanus toxoid and 2 Lf of diphtheria toxoid) Sherry Morton Other [facility] Other 09-20-2020 influenza virus vaccine, unspecified formulation Tomi Suraj [facility] 09-07-2019 influenza virus vaccine, unspecified formulation Tomi Conleypsey [facility] 09-14-2017 influenza virus vaccine, unspecified formulation Tomi Conleypsey [facility] 09-14-2017 tetanus and diphtheria toxoids, adsorbed, preservative free, for adult use (5 Lf of tetanus toxoid and 2 Lf of diphtheria toxoid) Sherry Morton Other [facility] NEGATED: Highlighted row has not occurred!01-27-2024 influenza virus vaccine, unspecified formulation Tomi Conleypsey [facility] NEGATED: Highlighted row has not occurred!01-27-2024 SARS-CoV-2 mRNA (tozinameran 5y-11y) vaccine Tomi Suraj [facility] Payers Date Payer Category Payer Private Health Insurance [id number] [id number] Private Health Insurance 1988 Unknown [id number] 2.16.8 [id number] 1988 Unknown [id number] 2.16.84 [id number] 1988 Unknown [id number] 2.16.84 [id number] 1988 Unknown [id number] 2.16.84 [id number] 1988 Unknown [id number] 2.16.84 [id number] 1988 Unknown [id number] 2.16.8 [id number] 1988 Unknown [id number] 2.16.8 [id number] 1988 Unknown [id number] 2.16.8 [id number] 1959 Self-pay [id number] 1959 Unknown [id number] 2.1 [id number] Private Health Insurance [id number] Unknown Social History Date Type Detail Facility Unknown if ever smoked [facility] Other Sex Assigned At [facility] Start: 01-27-2024 Tobacco smoking status Never s moked tobacco (finding) [facility] Tobacco smoking status Never [facility] Start: 1990 Sex Assigned At Female F [facility] Tobacco smoking stat [facility] Unknown if ever smoked [facility] Work Phone: Start: 11-22-2024 End: 01-16-2025 Sex Female (finding) [facility] Functional Status Date Assessment Result Facility 01-27-2024 Functional Status N/A [facility] Clinical Notes 12-10-2022 to 11-22-2024 Note Date & Type Note Facility 11-22-2024 Evaluation note Diagnosis Onset Date Resolution Anxiety acute November 22 025 2:47pm Spasm of thoracic back muscle acute November 22 2:47pm Wellness examination acute 2024 2:47pm [facility] Work Phone: 1(706) 161-408303-13-2024 Evaluation + Plan note Future Scheduled Tests Laboratory* Mononucleosis Screen 01/27/[address] [facility] 01-30-2024 Evaluation note* Encounter Date Diagnosis Assessment Notes Treatment Notes Treatment Clinical Notes Nov, Acute diverticulitis (ICD-10 - K57.92) Take antibiotic as directed. If develop wheezing, chest tightness, itching, bad cough, blue skin color, seizures, swelling of face, lips, tongue, or throat report to ED. [facility] Other 12-21-2023 Evaluation note* Encounter Date Diagnosis Assessment Notes Treatment Notes Treatment Clinical Notes Oct, Acute non-recurrent maxillary sinusitis (ICD-10 - J01.00) Presentation consistent with acute sinusitis after viral illness. Educated patient on appropriateness of antibiotic at this time. Instructed to take full course of antibiotic despite feeling better after a few days. Encouraged to use saline nasal spray or nasal irrigation to help decrease viscosity and allow drainage. Encouraged humidifier or to breathe in steam from shower. Patient to continue Tylenol or Motrin as needed for discomfort. Patient to follow-up with PCP as needed if symptoms do not improve within a few days. Patient verbalizes understanding and agrees with plan of care. Oct, Tonsil stone (ICD-10 - J35.8) Uses 2x per week as to prevent tonsil stones. [facility] Other 12-04-2023 Evaluation note* Encounter Date Diagnosis Assessment Notes Treatment Notes Treatment Clinical Notes Oct, Anxiety (ICD-10 - F41.9) [facility] Other 11-09-2023 Evaluation note* Encounter Date Diagnosis Assessment Notes Treatment Notes Treatment Clinical Notes Sep, Anxiety (ICD-10 - F41.9) Pt takes xanax sparingly. needs a daily med for anxiety. Has d/c lexapro. Sep, Wellness examination (ICD-10 - Z00.00) Requests lab order for wellness otherwise not a wellness exam today. [facility] Other 02-07-2023 Evaluation note* Encounter Date Diagnosis Assessment Notes Treatment Notes Treatment Clinical Notes Dec, Immunity status testing (ICD-10 - Z01.84) [facility] Other 01-25-2023 Evaluation note* Encounter Date Diagnosis Assessment Notes Treatment Notes Treatment Clinical Notes Nov, Immunity status testing (ICD-10 - Z01.84) [facility] Other Evaluation noteNo InformationNort [employer] Other Evaluation noteNo assessment information available [facility] Work Phone: Evaluation note* Diagnosis Onset Date Resolution Status Admit Date Wellness examination 2024 2:47pm [facility] Work Phone: History general Narrative - Reported* Type Description Date Medical History mitro and tricusp valve regurgit ation Surgical History cholecystectomy Surgical History D&C [facility] Other [facility] general Narrative - Reported* Type Description Date Medical History mitro and tricusp valve regurgit ation Surgical History cholecystectomy Surgical History D&C Hospitalization History SEE SURGICAL HX [facility] Other Hospital course Narrative No data available for this section [facility] Hospital Discharge instructions No data available for this section [facility] Progress note No data available for this section [facility] Summary Purpose Family History Relationship Condition Age at Onset Recorded Date/T luan father Heart disease Unknown Advance Directives Advance Directive Response Recorded Date/ Time Advance Directives No January 26 9:58am Advance Directive Response Recorded Date/ Time Advance Directives No January 26 8:58am Chief Complaint and Reason for Visit Chief Complaint med refills Chief Complaint Admit Date refills November 22, 2024 2: 47pm Reason for Visit Admit Date Wellness examination November 22, 2024 2 :47pm Chief Complaint Admit Date refills November 22, 2024 2: 47pm sinus pressure, fatigue January 16, 2025 3:11pm Reason for Visit Admit Date Anxiety November 22, 2024 2: 47pm Spasm of thoracic back muscle November 2:47pm Wellness examination November 22, 2024 2 :47pm Additional Source Comments INFORMATION SOURCE (unrecogn ized section and content) DATE CREATED AUTHOR 02/04/2019 [facility] DATE CREATED AUTHOR AUTHOR'S ORGANIZ ATION 03/16/2023 [facility] DATE CREATED AUTHOR AUTHOR'S ORGANIZ ATION 12/02/2023 [facility] DATE CREATED AUTHOR AUTHOR'S ORGANIZ ATION 01/29/2024 [facility] DATE CREATED AUTHOR AUTHOR'S ORGANIZ ATION 07/09/2024 [facility] REASON FOR VISIT (unrecogniz ed section and content) Order?LAB Orderswants lab fo r HEP B testing?Tetanus Shot mblabsempunc health labsLAB - LEXAPRO DISCUSSIONrefillsinus infection, covid and flu negativePrescriptionsCheck Up-Prescriptions Patient Care team informatio n (unrecognized section and content) Team Status: Active Member Role Status Dates [facility]) Primary Care Provider Activ e Team Status: Inactive Member Role Status Dates [facility]) Primary Care Provider Activ e Start: July 08, 2024 End: July 08, 2024 Sherry Morton MD Attending Provider Active St art: July 08, 2024 End: July 08, 2024 Team Status: Inactive Member Role Status Dates [facility]) Primary Care Provider Activ e Start: November 22, 2024 End: November 22, 2024 Sherry Morton MD Attending Provider Active St art: November 22, 2024 End: November 22, 2024 Team Status: Active Member Role Status Dates Sherry Morton MD Primary Care Provider Active Team Status: Inactive Member Role Status Dates Sherry Morton MD Primary Care Provide r, Attending Provider Active Start: January 16, 2025 End: January 16, 2025 Goals (unrecognized section and content) Goals may be documented in a n alternate section FOR RECORDS PERTAINING TO PATIENTS WHO ARE OR HAVE BEEN ENROLLED IN A CHEMICAL DEPENDENCY/SUBSTANCEABUSE PROGRAM, SOME INFORMATION MAY BE OMITTED. This clinical summary was aggregated from multiple sources. Caution should be exercised in using it in the provision of clinical care. This summary normalizes information from multiple sources, and as a consequence, information in this document may materially change the coding, format and clinical context of patient data. In addition, data may be omitted in some cases. CLINICAL DECISIONS SHOULD BE BASED ON THE PRIMARY CLINICAL RECORDS. [facility]. provides no warranty or guarantee of the accuracy or completeness of information in this document.
[2025-02-02 11:09] LABS: Alanine Aminotransferase 20 U/L (14-59); Albumin Globulin Ratio 1.1; Albumin Level 3.5 g/dL (3.4-5.0); Alkaline Phosphatase 59 U/L (46-116); Aspartate Amino Transferase 14 U/L (15-37); BUN Creatinine Ratio 16.7; Bilirubin Total 0.3 mg/dL (0.2-1.0); Calcium 8.6 mg/dL (8.5-10.1); Carbon Dioxide 26.1 mmol/L (21.0-32.0); Chloride 106 mmol/L (98-107); Chol HDL Ratio 3.2; Cholesterol 190 mg/dL (<=200); Estimated GFR (African America >60 (>=60 mL/min/1.73m^2); Estimated GFR (Non-African Ame >60 (>=60 mL/min/1.73m^2); Globulin 3.3 g/dL; Glucose 94 mg/dL (74-106); HDL Cholesterol 59 mg/dL (40-60); LDL Cholesterol Calculated 112.2 mg/dL; Potassium 4.1 mmol/L (3.5-5.1); Sodium 139 mmol/L (136-145); Total Protein 6.8 g/dL (6.4-8.2); Triglycerides 94 mg/dL (<=150); VLDL CHOLESTEROL 18.8 mg/dL
== END 2025-02-02 10:08 | disposition home or self-care (01) ==
PROVIDERS: PCP Family Medicine; Visit Provider Family Medicine
DX: Z00.00 Encounter for general adult medical examination without abnormal findings (principal)
CPT/HCPCS: 36415; 80053; 80061